=== PATIENT | male | born 1955 | race Caucasian/White ===

== ENCOUNTER → 2016-11-13 | Outpatient (CLI) | payer BC ==
[2016-11-13 10:09] LABS: BUN/CREATININE RATIO 15 (0-10)
== END ==
LOC: LAB 07:42
PROVIDERS: Nurse Practitioner
DX: E83.42 Hypomagnesemia (principal); E03.9 Hypothyroidism, unspecified; E29.1 Testicular hypofunction; I10 Essential (primary) hypertension; E55.9 Vitamin D deficiency, unspecified
CPT/HCPCS: 36415; 80053; 80061; 82043; 82728; 83001; 83002; 83735; 84146; 84402; 84403; 84436; 84443; 84480; 84481; 86039; 86141; G0480

== ENCOUNTER → 2016-11-17 | Outpatient (CLI) | payer BC | LOC: US 14:55 | DX: E03.9 Hypothyroidism, unspecified (principal) | CPT/HCPCS: 76536 ==

== ENCOUNTER → 2017-02-05 | Outpatient (CLI) | payer BC | LOC: LAB 07:26 | DX: E03.9 Hypothyroidism, unspecified (principal); I10 Essential (primary) hypertension | CPT/HCPCS: 36415; 82728; 83001; 83002; 84146; 84402; 84403; 84436; 84443; 84480; 84481; 86039; 86141; G0480 ==

== ENCOUNTER → 2020-10-04 | Outpatient (CLI) | payer BC ==
[~2020-10-04] MED LIST: LISINOPRIL10 MG PO
[2020-10-06 07:09] LABS: THYROXINE (T4) 7.8 ug/dL (4.5-12.0)
== END ==
LOC: LAB 07:32
PROVIDERS: Nurse Practitioner
DX: E03.9 Hypothyroidism, unspecified (principal); E29.1 Testicular hypofunction
CPT/HCPCS: 36415; 84402; 84403; 84436; 84439; 84443; 84480; 84481

== ENCOUNTER → 2020-12-30 | Outpatient (CLI) | payer BC | LOC: HEART 5 11:13 | DX: R06.02 Shortness of breath (principal); J45.50 Severe persistent asthma, uncomplicated | CPT/HCPCS: 94060; 94729; 95012 ==

== ENCOUNTER → 2021-01-02 | Outpatient (CLI) | payer BC ==
[2021-01-02 08:24] LABS: HEMOGLOBIN 16.8 gm/dl (14.0-17.5); RED BLOOD COUNT 5.05 M/UL (4.20-5.50); WHITE BLOOD COUNT 5.1 K/UL (4.5-11.0)
[2021-01-07 18:08] LABS: D001-IGE D PTERONYSSINUS <0.10 kU/L (Class 0); D002-IGE D FARINAE <0.10 kU/L (Class 0); E001-IGE CAT DANDER <0.10 kU/L (Class 0); E005-IGE DOG DANDER <0.10 kU/L (Class 0); G002-IGE BERMUDA GRASS <0.10 kU/L (Class 0); G006-IGE TIMOTHY GRASS <0.10 kU/L (Class 0); M001-IGE PENICILLIUM CHRYSOGEN <0.10 kU/L (Class 0); M002-IGE CLADOSPORIUM HERBARUM <0.10 kU/L (Class 0); M003-IGE ASPERGILLUS FUMIGATUS <0.10 kU/L (Class 0); M006-IGE ALTERNARIA ALTERNATA <0.10 kU/L (Class 0); T001-IGE MAPLE/BOX ELDER <0.10 kU/L (Class 0); T003-IGE COMMON SILVER BIRCH <0.10 kU/L (Class 0); T006-IGE CEDAR, MOUNTAIN <0.10 kU/L (Class 0); T007-IGE OAK, WHITE <0.10 kU/L (Class 0); T010-IGE WALNUT <0.10 kU/L (Class 0); T011-IGE MAPLE LEAF SYCAMORE <0.10 kU/L (Class 0); T014-IGE COTTONWOOD <0.10 kU/L (Class 0); T015-IGE ASH, WHITE <0.10 kU/L (Class 0); T070-IGE WHITE MULBERRY <0.10 kU/L (Class 0); W001-IGE RAGWEED, SHORT <0.10 kU/L (Class 0); W018-IGE SHEEP SORREL <0.10 kU/L (Class 0)
== END ==
LOC: LAB 07:53
PROVIDERS: Internal Medicine Pulmonary Disease
DX: J45.50 Severe persistent asthma, uncomplicated (principal)
CPT/HCPCS: 36415; 71046; 82785; 85025

== ENCOUNTER 2021-01-15 19:08 | Emergency (ER) | payer BC ==
[2021-01-15 19:59] LABS: HEMOGLOBIN 16.9 gm/dl (14.0-17.5); RED BLOOD COUNT 5.05 M/UL (4.20-5.50); WHITE BLOOD COUNT 11.3 K/UL (4.5-11.0)
[2021-01-15 20:18] LABS: BUN/CREATININE RATIO 21 (0-10)
[2021-01-15] MEDS ORDERED: LISINOPRIL10 MG PO (21:03)
== END 2021-01-15 21:44 | disposition home or self-care (01) ==
LOC: ER1 19:08
PROVIDERS: Family Medicine
DX: I10 Essential (primary) hypertension (principal); Z91.041 Radiographic dye allergy status; Z88.2 Allergy status to sulfonamides
CPT/HCPCS: 70450; 71046; 80053; 81001; 83605; 84439; 84443; 85025; 99285

== ENCOUNTER → 2021-01-21 | Outpatient (CLI) | payer BC | LOC: HEART 5 11:24 | DX: J45.50 Severe persistent asthma, uncomplicated (principal) | CPT/HCPCS: 94060; 95012 ==

== ENCOUNTER → 2022-05-08 | Outpatient (CLI) | payer BC ==
[2022-05-08 07:53] LABS: HEMOGLOBIN 16.3 gm/dl (14.0-17.5); RED BLOOD COUNT 5.08 M/UL (4.20-5.50); WHITE BLOOD COUNT 5.4 K/UL (4.5-11.0)
[2022-05-08 08:19] LABS: BUN/CREATININE RATIO 16 (0-10)
[2022-05-09 08:10] LABS: VITAMIN D, 25-HYDROXY 71.2 ng/mL (30.0-100.0)
[2022-05-09 12:10] LABS: ESTRADIOL 42.2 pg/mL (7.6-42.6)
== END ==
LOC: LAB 07:32
PROVIDERS: Nurse Practitioner
DX: I10 Essential (primary) hypertension (principal); E78.5 Hyperlipidemia, unspecified; E03.9 Hypothyroidism, unspecified; E29.1 Testicular hypofunction; E55.9 Vitamin D deficiency, unspecified; G47.33 Obstructive sleep apnea (adult) (pediatric)
CPT/HCPCS: 80053; 80061; 81001; 82607; 82642; 82670; 82746; 84153; 84402; 84403; 84439; 84443; 84481; 85025; 85027